=== PATIENT | female | born 2000 | race Caucasian/White ===

== ENCOUNTER 2020-05-12 11:16 | Day surgery (SDCO) | payer OTHER ==
[~2020-05-12 11:16] MED LIST: CARAFATE1 GM PO; MACROBID100 MG PO; MONISTAT 745 GM VG
[2020-05-12 12:15] LABS: BILIRUBIN NEGATIVE (NEGATIVE); BLOOD NEGATIVE Ery/uL (NEGATIVE); CLARITY CLEAR (CLEAR); COLOR YELLOW (YELLOW); GLUCOSE (U) NORMAL (NORMAL); LEUKOCYTES TRACE Leu/uL (NEGATIVE); NITRITE NEGATIVE (NEGATIVE); PROTEIN NEGATIVE (NEGATIVE); SPECIFIC GRAVITY 1.025 (1.001-1.030); UROBILINOGEN 0.2 mg/dL (0.2-1.0); pH 6.5 (5.0-9.0)
[2020-05-12 12:17] LABS: HCT 33.1 % (37.0-47.0); HGB 11.3 g/dl (12.5-16.0); MCH 30.2 pg (25.0-31.0); MCHC 34.1 g/dL (32.0-36.0); MCV 88.5 fL (78.0-100.0); MPV 12.3 fL (6.0-9.5); RBC 3.74 M/uL (4.20-5.40); RDW 12.6 % (11.5-14.0); WBC 11.7 K/uL (4.0-10.5)
[2020-05-12 12:35] LABS: BACTERIA 2+
[2020-05-12 12:37] LABS: ALBUMIN 2.4 g/dL (3.4-5.0); BILIRUBIN - TOTAL 0.1 mg/dL (0.2-1.0); BUN/CREAT RATIO (CALC) 22.6 RATIO; CREATININE 0.62 mg/dL (0.51-0.95); POTASSIUM 3.5 mmol/L (3.5-5.1); TOTAL PROTEIN 6.4 g/dL (6.4-8.2)
[2020-05-12 13:12] LABS: PROTEIN:CREATININE 0.37 RATIO; URINE CREATININE 116.23 mg/dL (29.00-226.00); URINE TOTAL PROTEIN-RANDOM 43.5 mg/dL (<11.9)
== END 2020-05-12 14:03 | disposition home or self-care (01) ==
LOC: FOB 11:16 → FOD 11:58 → FOB 11:59
PROVIDERS: ADMIT Obstetrics & Gynecology
DX: O13.3 Gestational [pregnancy-induced] hypertension without significant proteinuria, third trimester (principal); O24.414 Gestational diabetes mellitus in pregnancy, insulin controlled; O99.613 Diseases of the digestive system complicating pregnancy, third trimester; K25.9 Gastric ulcer, unspecified as acute or chronic, without hemorrhage or perforation; O99.353 Diseases of the nervous system complicating pregnancy, third trimester; G43.909 Migraine, unspecified, not intractable, without status migrainosus; O99.343 Other mental disorders complicating pregnancy, third trimester; J30.2 Other seasonal allergic rhinitis; Z3A.34 34 weeks gestation of pregnancy; Z86.19 Personal history of other infectious and parasitic diseases; Z88.8 Allergy status to other drugs, medicaments and biological substances
CPT/HCPCS: 36415; 80053; 81001; 82570; 83615; 84156; 84550; G0378